=== PATIENT | female | born 1950 | race Caucasian/White ===

== ENCOUNTER → 2017-09-07 09:34 | Day surgery (SDC) | payer MEDICARE, BC ==
--- NOTE | 2017-08-31 20:13 | HP ---
PREOPERATIVE HISTORY AND PHYSICAL: DATE OF SURGERY/ADMISSION: 09/07/17 - OR EAST DATE OF OFFICE VISIT/ENCOUNTER: 08/26/17 ATTENDING SURGEON: Amy García MD * (DICTATED BY ZAINAB HOWARD) PROCEDURE: Right wrist radial shortening osteotomy. PROFESSOR OF LITERATURE: Marcell Mcdowell MD CHIEF COMPLAINT: Right wrist pain, Kienbock's disease. HISTORY OF PRESENT ILLNESS: Sarina Blanco is a 67-year-old female who complains of pain in her right wrist for the past month or so. She fell and tripped over a recycling bin out and landed on an outstretched right hand. Prior to that, she did not have any symptoms in her wrist, but since then she has had some pain in her wrist which seems to be improving. She had an x-ray of the wrist which showed Kienbock's disease and a followup MRI also showed Kienbock's disease without collapse - she has a stage 2 Kienbock's with sclerosis. After evaluation by Dr. García and review of imaging studies, Dr. García is suggesting surgical intervention in the form of a right wrist radial shortening osteotomy to take pressure off of the lunate and the patient has consented to proceed. Ms. Blanco does have a history of coronary arteriosclerosis and had a cardiac catheterization in 2002. Since then, she is followed regularly by Dr. Mcdowell and she has been asymptomatic since 2002. She has had no abnormal EKGs and an echocardiogram performed in October of 2015 showed her ejection fraction to be 55% to 60%. PAST MEDICAL HISTORY: 1. Coronary arteriosclerosis. 2. Diabetes mellitus type 2. 3. Hypertension. 4. Cholelithiasis. 5. History of a heart murmur. 6. Hyperlipidemia. 7. History of Lyme disease. 8. Ankylosing spondylitis. 9. GERD. 10. Anxiety/depression. PAST SURGICAL HISTORY: 1. Cardiac catheterization in 2002. 2. Hysterectomy. 3. Vaginal and rectal wall repair. 4. Bladder resuspension. 5. Oophorectomy. 6. Right breast biopsy. 7. Cholecystectomy. 8. Bilateral cataract removal. 9. Right carpal tunnel release. CURRENT MEDICATIONS: 1. Albuterol inhaler 2 puffs q.i.d. p.r.n. 2. Aleve 220 mg p.r.n. 3. Aspirin 81 mg daily. 4. Crestor 10 mg daily. 5. Farxiga 1 tab daily. 6. Fish oil 1000 mg daily. 7. Lisinopril 10 mg daily. 8. Loratadine 10 mg daily. 9. Metformin HCl 1000 mg twice a day. 10. Norvasc 2.5 mg daily. 11. Omeprazole 20 mg daily. 12. Victoza 18 mg/3 mL 1.8 mg daily. 13. Vitamin D 2000 international units daily. 14. Zoloft 100 mg one and half tabs daily. ALLERGIES: 1. STATINS causes diarrhea. 2. CARDIZEM causes diarrhea. 3. GLUCOPHAGE causes an increase in liver enzymes. 4. ZOCOR reaction unknown. FAMILY MEDICAL HISTORY: Heart disease, cancer and diabetes. SOCIAL HISTORY: The patient is retired, but she works a couple of days a week at [employer]. Denies tobacco use and recreational drug use. She does drink alcohol on rare occasion. REVIEW OF SYSTEMS: General: Negative for fevers, chills, or night sweats. No known anesthesia problems. HEENT: Negative for headache, lightheadedness, or syncopal episodes. Integumentary: Negative for abrasions, lesions, or open wounds. Cardiothoracic: Negative for hypertension, chest pain, palpitations, or edema. Pulmonary: Negative for shortness of breath with exertion, chronic cough, COPD. GI: Negative for nausea, vomiting, diarrhea, or constipation. Positive for GERD. : Negative for nocturia, urinary frequency, urgency, history of UTIs, or kidney problems. Musculoskeletal: Positive for current complaint. Neurological: Positive for anxiety/depression. Negative for history of seizures, stroke, or epilepsy. Endocrine: Positive for diabetes. Negative for thyroid issues. Hematologic: Negative for easy bruising, anemia, excessive bleeding, or history of DVT. Infectious Disease: Negative for history of MRSA, hepatitis C, or HIV. PHYSICAL EXAMINATION GENERAL: Well-developed, well-nourished 67-year-old female in no acute distress. VITAL SIGNS: Height 5 feet 1.5 inches, weight 152 pounds. Pulse rate 75, blood pressure 120/70. HEENT: Normocephalic, atraumatic. Pupils are equal, round, and reactive to light and accommodation. Extraocular movements are intact. Throat is clear. NECK: Supple. No palpable lymph nodes. PULMONARY: Lungs are clear to auscultation bilaterally. No wheezes, rales, or rhonchi. CARDIOVASCULAR: Regular rate and rhythm. S1 and S2. Systolic ejection murmur noted with auscultation. No rubs or gallops. No edema. ABDOMEN: Positive bowel sounds, soft, nontender. NEUROLOGIC: Alert and oriented x3. Cranial nerves II through XII are intact. Sensation is intact to light touch. MUSCULOSKELETAL: On exam of her right wrist, there is no visible swelling. She has tenderness to palpation at the radiocarpal joint. She has good range of motion in flexion, extension, pronation, and supination. She can make a full fist. Her skin is intact. Neurovascular function is intact. IMAGING STUDIES: X-ray and MRI of the right wrist show Kienbock's disease of the right wrist, stage 2. PLAN: The patient is scheduled to undergo a right wrist radial shortening osteotomy with Dr. García on 09/07/17. She will return to the office in 10 to 14 days postop for followup and suture removal. A prescription for Aniwa was e - scribed to the patient's pharmacy for postoperative pain management. ZAINAB HOWARD [id number]/[facility] #: [id number] JANET
[~2017-09-07 09:34] MED LIST: Buffered Lidocaine 0.9% SYRIN* 5 ML/SYR SYRINGE INTRADERM ONE; Dexamethasone IV* 4 MG/ML 1 ML (4 MG) IV SLOW PU ONE; Dexamethasone IV* 4 MG/ML 1 ML (4 MG) ONE; DiMENhydriNATE IV* 50 MG/ML VIAL IV PUSH PRN; HYDROmorphone INJ* 1 MG/ML CARPUJECT SYRINGE IV PRN; Ketorolac INJ* 30 MG/ML 1 ML VIAL ONE; Midazolam* 1 MG/ML 2 ML VIAL (2 MG) ONE; Naloxone* 0.4 MG/ML 1 ML VIAL IV PRN; Ondansetron INJ* 2 MG/ML VIAL IV PRN; Ondansetron INJ* 2 MG/ML VIAL ONE; Propofol* 10 MG/ML 20 ML BTL IV PUSH ONE; ROPIVACAINE 5 MG/ML 30 ML BTL (0.5%) ONE; ceFAZolin 2 GM in 100 MLS NS (*) BAG IVPB ONE; fentaNYL* 50 MCG/ML 2 ML VIAL (100 MCG VIAL) IV PRN; fentaNYL* 50 MCG/ML 2 ML VIAL (100 MCG VIAL) ONE; oxyCODONE/Acetamin 5/325 MG* TAB PO PRN
[2017-09-07 14:05] VITALS: BP 123/88
--- NOTE | 2017-09-08 13:38 | RAD ---
INDICATION: ORIF RIGHT wrist radius osteotomy. COMPARISON: August 11, 2017 radiographs. TECHNIQUE: 1 minute 29 seconds fluoroscopy. FINDINGS: Spot images document a volar cortical plate bridging a distal metaphyseal osteotomy of the radius. Sclerosis of the lunate similar to the prior exam without suggestion of lunate collapse. IMPRESSION: Procedural fluoroscopy. CPT II Codes: 6045F
--- NOTE | 2017-09-09 10:36 | OP ---
CC: Dr. Amy García. OPERATIVE NOTE: DATE OF OPERATION: 09/07/17 DATE OF : 46 SURGEON: Dr. García. VAN DRIVER: ZAINAB Vargas ANESTHESIA: Block and general. PRE-OP DIAGNOSIS: Kienbock's disease of the right wrist. POST-OP DIAGNOSIS: Kienbock's disease of the right wrist. OPERATIVE PROCEDURE: Radial shortening osteotomy of the right wrist. ESTIMATED BLOOD LOSS: Zero. TOURNIQUET TIME: About 45 minutes. INDICATIONS FOR PROCEDURE: Sarina is a 67-year-old woman who injured her right wrist. She had rani e x-ray, which revealed Kienbock's disease. She presents for radial shortening osteotomy. She is ab out 2 mm ulna negative and the lunate has not yet collapsed and there was some sign of vascularized b one on the MRI. DESCRIPTION OF PROCEDURE: The patient was brought to the operating room and was given a general anes thetic and placed in the supine position on the operating table with a tourniquet around her right up per arm. Skin of her right upper extremity was prepped and draped in the usual sterile fashion. The hand and forearm were exsanguinated and the tourniquet elevated to 250 mmHg. A longitudinal incisio n was made over the FCR tendon and we dissected sharply through the superficial and deep portion of t he tendon sheath. The flexor tendons and the FPL muscle were retracted and then the pronator quadrat us was subperiosteally dissected off of the distal radius. A fixed-angle plate from the [employer] set w as secured with 4 distal and 1 proximal screw in the slotted hole. The plate was then removed and wi th 3 stacked saw blades, a 2 mm osteotomy was made in the metaphyseal portion of the radius. The plat e was then resecured with distal screws and the 3 proximal screws and position of the hardware and os teotomy fragments was checked on the C-arm in the AP and lateral views and found to be satisfactory. The radius and ulna were now neutral variance. The wound was irrigated. The pronator quadratus was repaired over the plate. The deep portion of the FCR tendon sheath was repaired with 2-0 Vicryl sut ure, the skin edges were reapproximated with 4-0 nylon suture. The wound was dressed with Xeroform, 4x4, Webril, and a fiberglass splint. The patient tolerated the procedure well and was brought to [facility] recovery room in good condition. [id number]/[facility] #: [id number]
== END | disposition home or self-care (01) ==
LOC: OREAST 09:34
PROVIDERS: ATTEND Orthopaedic Surgery
DX: M93.1 Kienbock's disease of adults (principal); M25.531 Pain in right wrist; I25.10 Atherosclerotic heart disease of native coronary artery without angina pectoris; E11.9 Type 2 diabetes mellitus without complications; Z79.84 Long term (current) use of oral hypoglycemic drugs; I10 Essential (primary) hypertension; E78.5 Hyperlipidemia, unspecified; R01.1 Cardiac murmur, unspecified; F41.8 Other specified anxiety disorders; F41.9 Anxiety disorder, unspecified
CPT/HCPCS: 76000; C1713; J1100; J1885; J2250; J2405; J2704; J2795; J3010